=== PATIENT | male | born 2000 | race Caucasian/White ===

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

== ENCOUNTER 2021-10-16 13:19 | Emergency (ER) | payer OTHER, SELFPAY ==
[2021-10-16 13:20] VITALS: BP 155/83; PULSE 91; RESP 14; TEMP 36.2; O2SAT 98; BMI 24.3
--- NOTE | 2021-10-16 13:30 | RAD_ITS ---
INDICATION: cp EXAMINATION/TECHNIQUE: X-RAY - XR Chest 1 View COMPARISON: 07/29/2019. FINDINGS: LINES/DEVICES: None. LUNGS: No consolidation, edema or effusion. No pneumothorax. MEDIASTINUM AND CARDIOVASCULAR STRUCTURES: Cardiac silhouette not enlarged. Central airways and mediastinal contour are unremarkable. BONES AND SOFT TISSUES: Unremarkable. RAD/Chest 1 View (Portable) IMPRESSION: No radiographic evidence of acute cardiopulmonary disease. Electronically Signed: Murphy Wetzel MD at 13:54 EDT ,
[2021-10-16 13:48] VITALS: BP 123/75; PULSE 87; RESP 21; O2SAT 97
--- NOTE | 2021-10-16 14:20 | ED.VIS.CHEST ---
HPI History of Present Illness Chief Complaint: Chest Pain Narrative Narrative: Patient presents with chest pain in the left parasternal region after lifting an object at work. No back pain no tearing sensation. No pleuritic pain. No shortness of breath pain is worse when he palpates in the region. [facility] Medical History History of Aiway-Xmemqdhtx-Ihhzu (WPW) syndrome Pyloric stenosis Home Medications naproxen [Naprosyn] 500 mg PO BID #14 tab 10/16/21 [Rx Last Taken Unknown] Allergy/AdvReac Type Severity Reaction Status Date / Time No Known Allergies Allergy Verified 10/16/21 13:21 Surgical History History of cardiac radiofrequency ablation (RFA) Social History Smoking Status: Current every day smoker tobacco type: e-cigarettes ROS ROS ED ROS Narrative Past medical history: Reviewed Medications: Reviewed Social history: Noncontributory Review of systems: All systems negative except as indicated General: No fever Eyes: No visual changes ENT: No upper airway congestion, normal voice Neck: No neck pain Cardiovascular: As in HPI Respiratory: No shortness of breath or cough Gastrointestinal: No abdominal pain, nausea vomiting or diarrhea Genitourinary: No dysuria Musculoskeletal: Denies myalgias no difficulty with ambulation Skin: No rash Neurological: No memory loss, confusion or any focal weakness Psych: No recent behavioral changes Hematologic: No easy bleeding or easy bruising EXAM Physical Exam Narrative Exam Narrative: Physical exam General: Well nourished, Well developed, No Acute Distress Head: Normocephalic, Atraumatic Eyes: Conjunctiva not pale ENT: Moist mucous membranes Neck: Supple, Nontender, No lymphadenopathy Cardiovascular: Regular rate, Regular rhythm. No murmur. Normal S1 and S2 Chest wall: Quite recent reproducible lower chest wall pain in the parasternal region. Respiratory: No distress, CTA bilaterally Abdomen: Soft, Nontender, Nondistended Back: Nontender, Normal Inspection. Negative for: CVA tenderness Extremities: Nontender, No edema Skin: Normal color, No rash Neurological: Alert, Normal Strength, Normal Sensation Psychological: Normal affect Const Vital Signs: 10/16/21 13:20 10/16/21 13:45 10/16/21 13:48 Temperature 97.2 F L Temperature Source Temporal Pulse Rate 91 87 Respiratory Rate 14 21 H Respiratory Effort Normal Blood Pressure 155/83 H 123/75 H Blood Pressure Mean 107 91 Pulse Ox 98 97 Oxygen Delivery Method Room Air Room Air Heart Score History: Slightly/Non-Suspicious ECG: Normal Age: </= 45 years Risk Factors: No Risk Factors Troponin: </= Normal Limit Score: 0 MDM MDM MDM Narrative Medical decision making narrative: Patient has a normal x-ray and normal EKG. He appears well. I believe he is stable for discharge this is likely chest wall. Radiography Diagnostic Testing: Clinical Impression(s) from Imaging Studies Chest X-Ray 10/16/21 13:30 IMPRESSION: No radiographic evidence of acute cardiopulmonary disease. Electronically Signed: Murphy Wetzel MD at 13:54 EDT Reading Location ID and State: [facility] / ID Tel , Service support , Chest x-ray read by me as normal. EKG Initial EKG: Comments: Sinus rhythm with a rate of 79. Normal VA and QTc intervals. No ischemic changes. Interpreted by emergency doctor Discharge Plan Triage Chief Complaint: Chest Pain ED Provider: Levon Mason Dx/Rx/DC Orders Clinical Impression: Chest pain, Acute chest wall pain Instructions: ED Chest Pain, Noncardiac Prescriptions: New naproxen [Naprosyn] 500 mg tablet 500 mg PO BID Qty: 14 RF: 0 Primary Care Provider: Brayden Mcnamara Referrals: Brayden Mcnamara MD [Primary Care Provider] - 2 Days Disposition Disposition: Home, Self Care
[2021-10-16 14:29] VITALS: BP 117/81; PULSE 78; RESP 15; O2SAT 98
== END 2021-10-16 14:29 | disposition home or self-care (01) ==
PROVIDERS: Emergency Provider Emergency Medicine; PCP Family Medicine; Visit Provider Emergency Medicine
DX: R07.9 Chest pain, unspecified (principal); F17.290 Nicotine dependence, other tobacco product, uncomplicated; Z79.1 Long term (current) use of non-steroidal anti-inflammatories (NSAID)
CPT/HCPCS: 71045; 99283